=== PATIENT | male | born 1985 | race Hispanic/Latino ===

== ENCOUNTER 2017-12-09 08:25 | Emergency (ER) | payer SELFPAY ==
[2017-12-10] MEDS ORDERED: GLYCOPYRROLATE 1 MG/5 ML SYRINGE ONE (15:57)
[2017-12-10] MEDS ORDERED: NEOSTIGMINE 5MG/5ML SYR IV ONE (15:58)
== END 2017-12-09 09:14 | disposition home or self-care (01) ==
LOC: EDH 08:25
DX: B00.1 Herpesviral vesicular dermatitis (principal); F12.10 Cannabis abuse, uncomplicated; Z72.0 Tobacco use
CPT/HCPCS: J2710; J3490

== ENCOUNTER 2018-03-22 07:58 | Emergency (ER) | payer OTHER | END 2018-03-22 08:47 | disposition home or self-care (01) | LOC: EDH 07:58 | DX: J02.9 Acute pharyngitis, unspecified (principal); F41.9 Anxiety disorder, unspecified; Z87.891 Personal history of nicotine dependence | CPT/HCPCS: 99281 ==

== ENCOUNTER 2022-06-06 15:38 | Emergency (ER) | payer OTHER ==
[~2022-06-06] VITALS: Ht 177.8 cm; Wt 104.8 kg
[2022-06-06 15:41] VITALS: BP 141/79
== END 2022-06-06 17:24 | disposition left against medical advice (07) ==
LOC: EDH 15:38
DX: J02.9 Acute pharyngitis, unspecified (principal); Z20.822 Contact with and (suspected) exposure to COVID-19; Z53.21 Procedure and treatment not carried out due to patient leaving prior to being seen by health care provider
CPT/HCPCS: 99281; 87635; 87880; C9803